=== PATIENT | female | born 1990 | race Caucasian/White ===

== ENCOUNTER 2020-01-03 16:42 | Emergency (ER) | payer SELFPAY ==
--- NOTE | 2020-01-03 17:46 | EDM.PDOC ---
ED HPI GENERAL MEDICAL PROBLEM - General Chief Complaint: ENT Problem Stated Complaint: EAR PAIN Time Seen by Provider: 01/03/20 17:16 Source of Information: Reports: Patient History Limitations: Reports: No Limitations - History of Present Illness INITIAL COMMENTS - FREE TEXT/NARRATIVE: Pt states she has been having bilateral ear pain for the last 5 days. She is having difficulty hearing due to 'plugged ears'. She has used over the counter medicine for the pain without any relief. Onset: Gradual Onset Date: 12/29/19 Onset Time: 08:00 Duration: Day(s):, Getting Worse Location: Reports: Head (bilateral ear pain. ) Quality: Reports: Stabbing Severity: Severe Improves with: Reports: None Worsens with: Reports: Other (touching her ears/pressure) Context: Reports: Other (unknown, no sick contact, no swimming, woke up with pain) Associated Symptoms: Reports: No Other Symptoms Treatments FLAGGER: Reports: Acetaminophen, NSAIDS Bilateral Ear Pain Score (Numeric/FACES): 6 - Related Data Allergies Allergy/AdvReac Type Severity Reaction Status Date / Time No Known Allergies Allergy Verified 01/03/20 17:01 Home Meds: Home Meds NK [No Known Home Meds] 01/03/20 [History] Past Medical History - Past Health History Medical/Surgical History: Denies Medical/Surgical History Social & Family History - Tobacco Use Smoking Status *Q: Never Smoker - Recreational Drug Use Recreational Drug Use: No ED ROS ENT - Review of Systems Review Of Systems: See Below Constitutional: Reports: No Symptoms HEENT: Reports: Ear Discharge (left ear), Ear Pain (bilateral), Hearing Loss. Denies: Eye Discharge, Eye Pain, Nose Pain, Sinus Problem, Throat Pain, Throat Swelling Respiratory: Reports: No Symptoms Cardiovascular: Reports: No Symptoms Endocrine: Reports: No Symptoms GI/Abdominal: Reports: No Symptoms : Reports: No Symptoms Musculoskeletal: Reports: No Symptoms Skin: Reports: No Symptoms Neurological: Reports: No Symptoms Psychiatric: Reports: No Symptoms Hematologic/Lymphatic: Reports: No Symptoms Immunologic: Reports: No Symptoms ED EXAM, ENT - Physical Exam Exam: See Below Exam Limited By: No Limitations General Appearance: Alert, WD/WN, Moderate Distress Eye Exam: Bilateral Eye: PERRL Ears: Hearing Loss, Auricular Erythema, Auricular Tenderness, Mastoid Tenderness, Canal Discharge, Canal Swelling. No: Normal TMs (difficulty to visualize TM due to swelling of ear canal - slight visualization of rt tm heck in color. ), Mastoid Swelling, Canal Foreign Body Nose: Normal Inspection, Normal Mucousa Mouth/Throat: Normal Inspection, Normal Gums, Normal Lips, Normal Oropharynx, N ormal Teeth Head: Atraumatic, Normocephalic Neck: Normal Inspection, Supple, Non-Tender, Full Range of Motion Respiratory/Chest: No Respiratory Distress, Lungs Clear, Normal Breath Sounds Cardiovascular: Normal Peripheral Pulses, Regular Rate, Rhythm GI/Abdominal: Normal Bowel Sounds, Soft Neurological: Alert, Oriented, CN II-XII Intact, Normal Cognition, Normal Gait Psychiatric: Normal Affect, Normal Mood Skin: Warm, Dry, Intact Lymphatic: No Adenopathy Course - Vital Signs Last Recorded V/S: Last Vital Signs Temp 36.9 C 01/03/20 17:03 Pulse 87 01/03/20 17:03 Resp 16 01/03/20 17:03 BP 138/66 01/03/20 17:03 Pulse Ox 99 01/03/20 17:03 - Re-Assessments/Exams Free Text/Narrative Re-Assessment/Exam: 01/03/20 20:30 Pt was seen in the [facility] earlier in illness. Pt stated no treatment warranted at that time per the provider she saw. Today her pain is unbearable and progressively affecting her hearing. Dx otitis externa with great amount of swelling in the outer ear canal to the TM. Ear drops Rxd through insty meds and direction provided for instillation. Pt instructed to followup with primary care provider in 2-3 days if no significant improvement as I was not able to get an accurate visualization of the TM in either ear. Ear drops will only treat the external infection. Pt is understanding of the direction and is satisfied with the plan of care. Departure - Departure Time of Disposition: 17:50 Disposition: Home, Self-Care 01 Condition: Fair Clinical Impression: Otitis externa Qualifiers: Otitis externa type: other infective Chronicity: acute Laterality: bilateral Qualified Code(s): H60.393 - Other infective otitis externa, bilateral - Discharge Information *PRESCRIPTION DRUG MONITORING PROGRAM REVIEWED*: Not Applicable *COPY OF PRESCRIPTION DRUG MONITORING REPORT IN PATIENT IVAN: Not Applicable Instructions: Ear Drops, Adult, Otitis Externa Referrals: PCP,None [Primary Care Provider] - Forms: ED Department Discharge Additional Instructions: Followup with primary care provider if pain does not reduce significantly in the next 2-three days. Sepsis Event Note (ED) - Evaluation Sepsis Screening Result: No Definite Risk - Focused Exam Vital Signs: Vital Signs Temp Pulse Resp BP Pulse Ox 01/03/20 17:03 36.9 C 87 16 138/66 99 01/03/20 16:53 36.9 C 87 16 138/66 99
== END 2020-01-03 17:50 | disposition home or self-care (01) ==
LOC: JP.ED 16:42
DX: H60.393 Other infective otitis externa, bilateral (principal)
CPT/HCPCS: 99282

== ENCOUNTER 2024-10-25 19:49 | Emergency (ER) | payer OTHER ==
[2024-10-25 20:10] LABS: BASOPHILS ABSOLUTE AUTO 0.04 K/uL (0.00-0.10); BASOPHILS PERCENT AUTO 0.2 % (0.1-1.3); EOSINOPHILS PERCENT AUTO 0.1 % (0.0-5.4); HEMATOCRIT 36.5 % (34.3-46.0); HEMOGLOBIN 12.1 g/dL (11.2-15.5); IMMATURE GRAN ABSOLUTE AUTO 0.12 K/uL (0.00-0.23); IMMATURE GRAN PERCENT AUTO 0.6 % (0.0-0.7); LYMPHOCYTES ABSOLUTE AUTO 2.07 K/uL (0.8-3.3); LYMPHOCYTES PERCENT AUTO 9.7 % (11.4-47.7); MEAN CORPUSCULAR HEMOGLOBIN 27.5 pg (31.6-35.5); MEAN CORPUSCULAR HGB CONC 33.2 g/dL (31.6-35.5); MONOCYTES ABSOLUTE AUTO 1.44 K/uL (0.20-0.90); MONOCYTES PERCENT AUTO 6.8 % (3.3-12.6); NEUTROPHILS ABSOLUTE AUTO 17.57 K/uL (1.0-7.6); NEUTROPHILS PERCENT AUTO 82.6 % (40.0-78.1); PLATELET COUNT,PLT 287 K/uL (130-375); WHITE BLOOD CELL COUNT,WBC 21.3 K/uL (3.2-11.0)
[2024-10-25 20:11] LABS: EOSINOPHILS ABSOLUTE AUTO 0.02 K/uL (0.00-0.40)
[2024-10-25] MEDS: HYDROmorphone 0.5 MG/0.5 ML Syringe IVPUSH ONE ×2 (20:13→20:20)
[2024-10-25] MEDS: Sodium Chloride 0.9% 1,000 ML IV SCH (20:15)
[2024-10-25 20:24] LABS: A/G RATIO 1.1 (1.2-2.2); ALANINE AMINOTRANSFERASE,ALT 23 U/L (12-78); ALBUMIN 3.8 g/dL (3.4-5.0); ALKALINE PHOSPHATASE 42 U/L (46-116); ASPARTATE AMNIOTRANSFERASE,AST 13 U/L (15-37); BILIRUBIN TOTAL 0.5 mg/dL (0.2-1.0); BLOOD UREA NITROGEN,BUN 20 mg/dL (7-18); CALCIUM 8.9 mg/dL (8.5-10.1); CARBON DIOXIDE,CO2 24 mmol/L (21-32); CHLORIDE,CL 102 mmol/L (100-108); CREATININE 0.9 mg/dL (0.6-1.0); EST CRCL DRUG DOSING (CG) 74.62 mL/min; ESTIMATED GFR 85 mL/min (>60); GLUCOSE RANDOM 144 mg/dL (74-106); POTASSIUM,K 3.3 mmol/L (3.6-5.2); PROTEIN TOTAL,TP 7.2 g/dL (6.4-8.2); SODIUM,NA 138 mmol/L (140-148)
[2024-10-25 20:25] LABS: ANION GAP 15.3 mmol/L (5.0-14.0)
[2024-10-25] MEDS: Sodium Chloride 0.9% 100 ML IV ONE (22:12)
[2024-10-25] MEDS: Sodium Chloride 0.9% 10 ML Syringe FLUSH ONE (22:12)
[2024-10-25] MEDS: Iopamidol 612 MG/ML 100 ML Bottle IV ONE (22:12)
[2024-10-26 00:03] LABS: APPEARANCE,URINE CLEAR (CLEAR); BILIRUBIN,URINE NEGATIVE (NEGATIVE); COLOR,URINE YELLOW (YELLOW); GLUCOSE,URINE NEGATIVE (NEGATIVE); KETONES,URINE NEGATIVE (NEGATIVE); LEUKOCYTE ESTERASE,URINE NEGATIVE (NEGATIVE); NITRITE,URINE NEGATIVE (NEGATIVE); OCCULT BLOOD,URINE SMALL (NEGATIVE); PROTEIN,URINE NEGATIVE (NEGATIVE); UROBILINOGEN,URINE 0.2 EU/dL (0.2-1.0)
[2024-10-26 00:10] LABS: AMORPHOUS SEDIMENT,URINE NOT SEEN; BACTERIA,URINE RARE; EPITHELIAL CELLS,URINE NOT SEEN; MUCUS,URINE NOT SEEN; RBC,URINE 0-5 (0-5); WBC,URINE 0-5 (0-5)
[2024-10-26] MEDS: HYDROmorphone 0.5 MG/0.5 ML Syringe IVPUSH ONE (00:30)
== END 2024-10-26 00:43 | disposition other institution (70) ==
LOC: JP.ED 19:49
DX: K56.609 Unspecified intestinal obstruction, unspecified as to partial versus complete obstruction (principal); N80.9 Endometriosis, unspecified
CPT/HCPCS: 36415; 74177; 76830; 80053; 81001; 83605; 83690; 85025; 93976; 96374; 96376; 99285; J7030; Q9967

== ENCOUNTER 2024-10-31 22:25 | Emergency (ER) | payer OTHER ==
[2024-10-31] MEDS ORDERED: Naloxone 0.4 MG/ML SDV IVPUSH PRN (22:37)
[2024-10-31 22:41] LABS: BASOPHILS ABSOLUTE AUTO 0.05 K/uL (0.00-0.10); BASOPHILS PERCENT AUTO 0.4 % (0.1-1.3); EOSINOPHILS ABSOLUTE AUTO 0.17 K/uL (0.00-0.40); EOSINOPHILS PERCENT AUTO 1.3 % (0.0-5.4); HEMATOCRIT 39.6 % (34.3-46.0); HEMOGLOBIN 13.2 g/dL (11.2-15.5); IMMATURE GRAN ABSOLUTE AUTO 0.06 K/uL (0.00-0.23); IMMATURE GRAN PERCENT AUTO 0.5 % (0.0-0.7); LYMPHOCYTES ABSOLUTE AUTO 1.69 K/uL (0.8-3.3); MEAN CORPUSCULAR HEMOGLOBIN 27.4 pg (31.6-35.5); MEAN CORPUSCULAR HGB CONC 33.3 g/dL (31.6-35.5); MEAN CORPUSCULAR VOLUME 82.3 fL (81.4-99.0); MONOCYTES ABSOLUTE AUTO 0.73 K/uL (0.20-0.90); MONOCYTES PERCENT AUTO 5.6 % (3.3-12.6); NEUTROPHILS ABSOLUTE AUTO 10.26 K/uL (1.0-7.6); NEUTROPHILS PERCENT AUTO 79.2 % (40.0-78.1); PLATELET COUNT,PLT 335 K/uL (130-375); RED BLOOD CELL COUNT 4.81 M/uL (3.77-5.24)
[2024-10-31] MEDS: Ondansetron 4 MG/2 ML SDV IVPUSH ONE (22:41)
[2024-10-31] MEDS: HYDROmorphone 0.5 MG/0.5 ML Syringe IVPUSH ONE (22:44)
[2024-10-31 22:53] LABS: ALANINE AMINOTRANSFERASE,ALT 22 U/L (12-78); ALBUMIN 3.9 g/dL (3.4-5.0); ALKALINE PHOSPHATASE 49 U/L (46-116); ANION GAP 12.7 mmol/L (5.0-14.0); ASPARTATE AMNIOTRANSFERASE,AST 10 U/L (15-37); BILIRUBIN TOTAL 0.4 mg/dL (0.2-1.0); BLOOD UREA NITROGEN,BUN 10 mg/dL (7-18); CARBON DIOXIDE,CO2 28 mmol/L (21-32); CHLORIDE,CL 101 mmol/L (100-108); CREATININE 0.8 mg/dL (0.6-1.0); ESTIMATED GFR 98 mL/min (>60); GLUCOSE RANDOM 116 mg/dL (74-106); MAGNESIUM 1.9 mg/dL (1.8-2.4); POTASSIUM,K 3.7 mmol/L (3.6-5.2); PROTEIN TOTAL,TP 7.9 g/dL (6.4-8.2); SODIUM,NA 138 mmol/L (140-148)
[2024-10-31] MEDS: Sodium Chloride 0.9% 80 ML IV SCH (23:35)
[2024-10-31] MEDS: Sodium Chloride 0.9% 10 ML Syringe FLUSH ONE (23:35)
[2024-10-31] MEDS: Iopamidol 612 MG/ML 100 ML Bottle IV PRN (23:35)
== END 2024-11-01 01:15 ==
LOC: JP.ED 22:25
DX: K56.609 Unspecified intestinal obstruction, unspecified as to partial versus complete obstruction (principal)
CPT/HCPCS: 36415; 74177; 80053; 83605; 83690; 83735; 85025; 96374; 96375; 99285; J2405; Q9967; 99284